=== PATIENT | male | born 1990 | race Caucasian/White ===

== ENCOUNTER 2017-05-08 21:48 | Emergency (ER) | payer OTHER ==
[~2017-05-08] VITALS: Ht 177.8 cm; Wt 86.4 kg
[~2017-05-08 21:48] MED LIST: BIOT1CAP8 PO; BUPRENORPHINE SL; CALC-51 PO; GEMF600T3 PO; MAGNESIUM GLUCONATE PO; MULT-506 PO; NORT25CA PO; OMEG10007 PO
[2017-05-08 21:53] VITALS: TEMP 36.8; Ht 177.8 cm; Wt 86.4 kg
[2017-05-08] MEDS ORDERED: KETOROLAC TROMETHAMINE 60 MG/2 ML VIAL IM STA (22:25)
[2017-05-08] MEDS ORDERED: CALC-51 PO (22:53)
[2017-05-08] MEDS ORDERED: HYDROmorphone INJ 1 MG/ML SYR IM STA (23:10)
[2017-05-08 23:37] VITALS: BP 152/89
--- NOTE | 2017-05-09 00:16 | EMERGENCY ROOM VISIT NOTE ---
History First contact with patient: 22:10 Chief Complaint: LEG PAIN,LEG INJURY Stated Complaint: L RESIDUAL LIMB NERVE PAIN- WORK RELATED? History of Present Illness The patient is a 27 year old male who presents to the Emergency Room with complaints of nerve pain in his left leg. The patient has a history of bilateral above-knee amputations. He states that this week, he was at a "boot camp" to learn how to use his prosthetic legs. He states that over the day, he has had intermittent pain in his left stump. He states the pain is a shooting pain consistent with nerve pain he has had in the past. He states that the nerve pain has been well-controlled for the past few years, but has worsened recently. He was seen by his primary care provider earlier this week and they increased his dose of nortriptyline. The patient also takes Suboxone for his chronic nerve pain. He states the pain is worse with bowel movements, which is normal for him. He denies any numbness or weakness. Review of Systems A complete 10 point review of systems was reviewed with the patient with pertinent positives and negatives as per history of present illness. All else were negative. Past Medical/Surgical History Medical Problems: (1) Amputation of right index finger (2) Anxiety disorder (3) Dyslipidemia (4) Fatty liver Surgical Problems: (1) Amputation of right thumb (2) S/P bilateral above knee amputation Social History Smoking Status: Never Smoker Alcohol Use: occasionally Marital Status: single Occupation Status: employed Current/Historical Medications Scheduled Biotin (Biotin), 1 CAP PO DAILY Calcium Carbonate-Vitamin D (Calcium), 1 TAB PO DAILY Fish Oil (Ridott-3), 2 CAP PO DAILY Gemfibrozil (Lopid), 1 TAB PO BID Multivitamin (Multivitamin), 1 TAB PO DAILY Nortriptyline (Pamelor), 100 MG PO HS Scheduled PRN [Buprenorphine], 2 MG SL BID PRN for PRN Allergies Coded Allergies: No Known Allergies (Unverified , 04/01/17) Physical Exam Vital Signs Date Time Temp Pulse Resp B/P (MAP) Pulse Ox O2 Delivery O2 Flow Rate FiO2 05/09/17 00:51 80 16 94 05/08/17 23:37 79 16 152/89 98 Room Air 05/08/17 21:53 36.8 87 18 140/91 93 Room Air Physical Exam VITALS: Vitals are noted on the nurse's note and reviewed by myself. Vital signs stable. GENERAL: This is a 27-year-old male, in no acute distress, nondiaphoretic, well- developed well-nourished. HEART: Regular rate and rhythm without murmurs gallops or rubs. LUNGS: Clear to auscultation bilaterally without wheezes, rales or rhonchi. MUSCULOSKELETAL: Bilateral above-knee amputations. There is a small abrasion to the posterior aspect of the left stump. No evidence of cellulitis. No tenderness to palpation. NEURO: Patient was alert and oriented to person place and time. Medical Decision & Procedures Medications Administered Medications (Trade) Dose Ordered Sig/Daina Route Start Time Stop Time Status Last Admin Dose Admin Ketorolac Tromethamine (Toradol Inj) 60 mg NOW STAT IM 05/08/17 22:25 05/08/17 22:26 DC 05/08/17 22:39 60 MG Hydromorphone HCl (Dilaudid Inj) 1 mg NOW STAT IM 05/08/17 23:10 05/08/17 23:12 DC 05/08/17 23:36 1 MG Medical Decision Differential diagnosis includes nerve pain, infection, phantom limb, among others. The patient was evaluated as above. He presents with pain consistent with chronic pain he has had in the left stump. Pain has worsened over the past 1 week, which he feels likely secondary to using his prosthetics. No evidence of infection on exam. The patient was initially given 60 mg Toradol IM with little relief. He was then given 1 mg Dilaudid IM with significant relief of symptoms. The patient is planning to follow-up with his primary care provider tomorrow for further treatment. I do not feel further workup is necessary at this time, as the patient has had these symptoms before. He will return here for any worsening or new/concerning symptoms. He verbalized understanding of my assessment and treatment plan and was discharged home in good condition. Medication reconciliation: I attest that I have personally reviewed the patient 's current medication list. Blood Pressure Screening: Patient was found to have a slightly elevated blood pressure due to circumstances. I do not believe that the patient requires hypertension monitoring. Impression Primary Impression: Pain of amputation stump of left lower extremity Departure Information Dispostion Home / Self-Care Condition GOOD Referrals Kesha Dunn C.R.N.P. (PCP) Patient Instructions [facility] Additional Instructions [facility]. Return here for any worsening or new/concerning symptoms.
[2017-05-09 00:51] VITALS: PULSE 80; O2SAT 94
[2017-06-10] MEDS ORDERED: DULO60CA44 PO (13:44)
== END 2017-05-09 00:40 | disposition home or self-care (01) ==
LOC: C.EDB 21:50
DX: M79.605 Pain in left leg (principal); Z89.611 Acquired absence of right leg above knee; Z89.612 Acquired absence of left leg above knee; E78.5 Hyperlipidemia, unspecified; F41.9 Anxiety disorder, unspecified; Z79.899 Other long term (current) drug therapy